=== PATIENT | female | born 1950 | race Caucasian/White ===

== ENCOUNTER → 2016-07-13 | Outpatient (CLI) | payer OTHER, MEDICARE ==
[~2016-07-13] MED LIST: CYAN10006 IM; DIPH25CA84 PO; ESTR0.624 PO; ESTR30GE2; ESTR42.5 VAGINALLY; FLUO20CA30 PO; HYDR25TA PO; PANT20TA13 PO; TRAM50TA4 PO
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
== END ==
LOC: IMA 16:39
PROVIDERS: ATTEND Family Medicine
DX: M84.471G Pathological fracture, right ankle, subsequent encounter for fracture with delayed healing (principal)